=== PATIENT | female | born 1985 | race African-American/Black ===

== ENCOUNTER → 2019-07-03 | Outpatient (CLI) | payer OTHER | LOC: YHH 11:54 ==

== ENCOUNTER 2019-11-26 11:50 | Emergency (ER) | payer OTHER ==
[2019-11-26 12:02] VITALS: BP 153/90; PULSE 81; TEMP 98; BMI 44.1
[2019-11-26] MEDS ORDERED: ACETAMINOPHEN 500 MG TABLET (FP) PO ONE (13:56)
--- NOTE | 2019-11-26 13:56 | PDOC ---
History of Present Illness - General Chief Complaint: Eye Problem Stated Complaint: EYE PROBLEM Time Seen by Provider: 11/26/19 12:55 History Source: Patient Exam Limitations: No Limitations - History of Present Illness Initial Comments: 11/26/19 13:51 34-year-old female denies past medical history presents complaining of right eye tearing and itching since yesterday with mild right-sided frontal headache. 3 days ago she had a sore throat which has resolved without intervention. Does not wear contacts, does not use corrective lenses, denies eye trauma, changes in vision, neck pain, rash, cough, fever, chills, chest pain, shortness of breath, abdominal pain, vomiting, diarrhea or any other complaint. ROS: GENERAL/CONSTITUTIONAL: No fever, chills, weakness, dizziness HEAD, EYES, EARS, NOSE AND THROAT: Right eye tearing and itching, no changes in vision, No ear pain or discharge, No sore throat CARDIOVASCULAR: No chest pain RESPIRATORY: No shortness of breath or cough GASTROINTESTINAL: No pain, nausea, vomiting, diarrhea or constipation GENITOURINARY: No dysuria MUSCULOSKELETAL: No neck or back pain SKIN: No rash NEUROLOGIC: Mild frontal headache, vertigo, loss of consciousness, or loss of sensation PE: GENERAL: well-appearing, NAD HEAD: NCAT EYES: Pupils equal, round and reactive to light, conjunctiva mildly injected, minimal clear discharge noted from right eye ENT: pharynx: Normal bilateral ear canal, no erythema, no exudate, uvula midline NECK: supple CHEST: nontender RESP: clear, no w/r/r CARDIO: rrr, no m/g/r ABD: +BS, soft, nontender, non distended BACK: no midline spinal ttp, no CVAT EXTREMITIES: Normal range of motion, no edema NEUROLOGICAL: Normal speech, normal gait SKIN: Warm, Dry Is this a multiple visit Asthma Patient?: No Past History - Past Medical History Allergies/Adverse Reactions: Allergies Allergy/AdvReac Type Severity Reaction Status Date / Time latex Allergy Unknown Itching Verified 11/26/19 12:02 tomato Allergy Unknown Itching Verified 11/26/19 12:02 aspirin AdvReac abdominal Verified 11/26/19 12:02 pain Home Medications: Ambulatory Orders Erythromycin 0.5% Eye Ointment [Erythromycin 0.5% Eye Ointment -] 1 applic OD TID #1 tube 11/26/19 Anemia: No Asthma: No Cancer: No Cardiac Disorders: No CVA: Yes (mini-stroke (TIA) - 2016, unprovoked) COPD: No Diabetes: No HTN: No Hypercholesterolemia: No Seizures: No Thyroid Disease: No Other medical history: HEADACHES - Surgical History Orthopedic Surgery: Yes (left knee) - Psycho Social/Smoking Cessation Hx Smoking History: Never smoked Hx Alcohol Use: No Substance Use Type: Marijuana *Physical Exam - Vital Signs Last Vital Signs Temp Pulse Resp BP Pulse Ox 98 F 81 18 153/90 99 11/26/19 11:59 11/26/19 11:59 11/26/19 11:59 11/26/19 11:59 11/26/19 11:59 Medical Decision Making - Medical Decision Making 11/26/19 13:55 34-year-old female with no past medical history presents complaining of itching and clear watery discharge from right eye since yesterday. Also reports mild right-sided frontal headache. Exam consistent with conjunctivitis Mild headache -neurologically intact P.o. acetaminophen given for headache Erythromycin ophthalmic ointment prescription sent to pharmacy Stable for discharge Discharge - Discharge Information Problems reviewed: Yes Clinical Impression/Diagnosis: Conjunctivitis Qualifiers: Conjunctivitis type: acute Acute conjunctivitis type: unspecified Laterality: right Qualified Code(s): H10.31 - Unspecified acute conjunctivitis, right eye Condition: Stable Disposition: HOME - Follow up/Referral Referrals: Priscilla Marcelino [employer] [Primary Care Provider] - - Patient Discharge Instructions Additional Instructions: Apply erythromycin ointment to right eye every 6 hours during waking hours Take acetaminophen 1000 mg every 6 hours as needed Return to ED if nausea, vomiting, worsening headache, fever, chills, changes in vision or any worsening symptom Follow-up with your doctor this week - Post Discharge Activity
[2019-11-26] MEDS ORDERED: ACETAMINOPHEN 500 MG TABLET (FP) ONE (13:59)
== END 2019-11-26 14:16 | disposition home or self-care (01) ==
LOC: JERFT 11:50
DX: H10.31 Unspecified acute conjunctivitis, right eye (principal); Z86.73 Personal history of transient ischemic attack (TIA), and cerebral infarction without residual deficits; Z88.6 Allergy status to analgesic agent; Z91.040 Latex allergy status; Z91.018 Allergy to other foods
CPT/HCPCS: 99281-25